=== PATIENT | male | born 1985 ===

== ENCOUNTER 2023-10-12 06:21 | Day surgery (SDC) | payer OTHER, SELFPAY ==
[2023-10-12] VITALS (10 sets, daily range): BP systolic 117–140; BP diastolic 79–91; BMI 28.5
[2023-10-12] MEDS: NORMOSOL-R 1000 IV (09:02)
[2023-10-12] MEDS: DILAUDID 0.5 MG IV (11:16)
[2023-10-12] MEDS: ROXICODONE 5 MG PO (12:08)
== END 2023-10-12 12:30 | disposition home or self-care (01) ==
LOC: SDS 06:21
PROVIDERS: ATTENDING PHYSICIAN Otolaryngology
DX: K11.5 Sialolithiasis (principal)
CPT/HCPCS: 42440; 88300